=== PATIENT | female | born 1990 | race Hispanic/Latino ===

== ENCOUNTER 2016-12-11 19:27 | Emergency (ER) | payer OTHER ==
[~2016-12-11] VITALS: Ht 152.4 cm; Wt 68.0 kg
--- NOTE | 2016-12-11 20:47 | ED GI/GU/ABDOMINAL COMPLAINT ---
History of Present Illness General Chief Complaint: Low Back Pain/Injury Stated Complaint: LOWER BACK PAIN Source: patient, family Exam Limitations: no limitations Vital Signs & Intake/Output Vital Signs & Intake/Output Vital Signs Date Time Temp Pulse Resp B/P Pulse O2 O2 Flow FiO2 Ox Delivery Rate 12/11 2218 98.0 81 16 115/77 97 Room Air 12/11 2127 98 Room Air 12/11 1947 98.6 82 20 118/76 98 Room Air Allergies Coded Allergies: phenobarbital (Severe, BLISTERS IN MOUTH AND HIVES ON BODY 12/11/16) Uncoded Allergies: chewable dilantin (throat swells 12/31/13) Reconcile Medications Levetiracetam (Keppra) 500 MG TABLET 1 TAB PO BID SEIZURES (Reported) Levothyroxine Sodium 50 MCG TABLET 1 TAB PO DAILY THYROID HEALTH (Reported) Triage Note: TRIAGE: PT TO ER C/C PAIN TO LOW BACK (WORSE ON L SIDE), CONSTANT SINCE THIS MORNING AND WORSE WHEN URINATING. Triage Nurses Notes Reviewed? yes ? N Is pt currently ? No HPI: Patient presents with left flank pain radiating to her groin since morning. The pain is constant. Pain increases while she is actively urinating or with movement and had got worse during sex this evening. There is no vaginal discharge. There is no hematuria. There's no palpable fracture to her urine. There is no dysuria. She is not urinating more frequently. The pain is cramping in nature. The pain is 8 out of 10. There's no aggravating or mitigating factors. The pain is constant. Past History Travel History Traveled to [place] past 21 day No Medical History Any Pertinent Medical History? 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 No Review of Systems Review of Systems Constitutional: Reports: no symptoms. EENTM: Reports: no symptoms. Respiratory: Reports: no symptoms. Cardiovascular: Reports: no symptoms. GI: Reports: see HPI, abdominal pain. Genitourinary: Reports: see HPI. Musculoskeletal: Reports: see HPI, back pain. Skin: Reports: no symptoms. Neurological/Psychological: Reports: no symptoms. Hematologic/Endocrine: Reports: no symptoms. Immunologic/Allergic: Reports: no symptoms. All Other Systems: Reviewed and Negative Physical Exam Physical Exam General Appearance: well developed/nourished, alert, awake Head: atraumatic, normal appearance Eyes: Bilateral: PERRL, EOMI. Ears, Nose, Throat, Mouth: hearing grossly normal, moist mucous membrane Neck: normal inspection, supple, full range of motion Respiratory: normal breath sounds, chest non-tender, no respiratory distress, lungs clear Cardiovascular: regular rate/rhythm, normal peripheral pulses Gastrointestinal: normal bowel sounds, soft, non-tender, no organomegaly Back: normal inspection, normal range of motion, NO CVA TENDERNESS Extremities: normal range of motion Neurologic/Psych: no motor/sensory deficits, awake, alert, oriented x 3, normal gait, normal mood/affect Skin: intact, normal color, warm/dry Core Measures ACS in differential dx? No Severe Sepsis Present: No Septic Shock Present: No Progress Differential Diagnosis: ectopic , intrauterine , kidney stone, threatened AB, UTI/pyelo Plan of Care: Orders Procedure Date/time Status URINE 12/11 1949 Complete URINALYSIS 12/11 1949 Complete Laboratory Tests 12/11/162033: Urine Color YEL, Urine Clarity CLEAR, Urine pH 6.5, Ur Specific [place] 1.025, Urine Protein NEG, Urine Ketones NEG, Urine Nitrite NEG, Urine Bilirubin NEG, Urine Urobilinogen 0.2, Ur Leukocyte Esterase NEG, Ur Microscopic SEDIMENT EXAMINED, Urine RBC 1-3, Ur Epithelial Cells FEW, Urine Mucus RARE, Urine Hemoglobin TRACE-INTACT, Urine Glucose NEG, Urine Test NEGATIVE Diagnostic Imaging: Viewed by Me: CT Scan. Discussed w/RAD: CT Scan. Radiology Impression: PATIENT: RAQUEL GONZALEZ PRESENT AGE: 26 PATIENT ACCOUNT NO: [id number] : 88 LOCATION: [facility] ORDERING PHYSICIAN: NUHA GROVER MD SERVICE DATE: 12/11/16 EXAM TYPE: CAT - CT ABD & PELVIS W/O IV CONTRAS EXAMINATION: CT ABDOMEN AND PELVIS WITHOUT CONTRAST CLINICAL INFORMATION: Left flank pain. Evaluate for renal stone. COMPARISON: Complete abdominal ultrasound 05/06/2013. TECHNIQUE: Multidetector volumetric imaging was performed from the superior aspect of the liver through the pubic symphysis. Sagittal and coronal reformatted images were obtained on the technologist's workstation. DLP: 283 mGy-cm FINDINGS: Limited evaluation of the solid abdominal viscera in the absence of intravenous contrast. LUNG BASES: The visualized lung bases are unremarkable. LIVER, GALLBLADDER, AND BILIARY TREE: The liver is normal in size, shape, and attenuation. No contour deforming hepatic lesion or biliary ductal dilatation is present. The gallbladder is unremarkable with no evidence of radiopaque gallstones, gallbladder wall thickening, or obvious pericholecystic inflammatory changes. PANCREAS: Unremarkable. SPLEEN: Unremarkable. ADRENAL GLANDS: Unremarkable. KIDNEYS AND URETERS: The kidneys are normal in size, shape and contour. No contour deforming renal lesions are identified. No renal or ureteral stones are identified and there is no hydroureteronephrosis of either kidney or renal collecting system. BLADDER: Unremarkable. GASTROINTESTINAL TRACT: Normal anatomic orientation of the stomach relative to the duodenum. Normal caliber of abdominal and pelvic bowel loops, without evidence of obstruction or ileus. No circumferential bowel wall thickening with surrounding inflammatory changes to suggest an underlying infectious or inflammatory enterocolitis. Normal-appearing appendix within the right lower quadrant of the abdomen. No organizing intra- abdominal fluid collections or free intraperitoneal air. ABDOMINAL WALL: No significant hernia is appreciated. LYMPH NODES: No significant abdominal or pelvic adenopathy. VASCULAR: Normal course and caliber of the abdominal aorta and its branching vessels, without aneurysmal dilatation. Limited evaluation for vascular patency in the absence of intravenous contrast. PELVIC VISCERA: Evaluation of the pelvic viscera is notable for a hypoattenuating structure within the left adnexa measuring 3.3 x 4.9 cm in transverse and AP dimensions respectively. This could reflect a large cystic structure within the left ovary. OSSEOUS STRUCTURES: No acute osseous abnormality. Normal alignment of the imaged thoracolumbar spine. No visible destructive osseous lesions. IMPRESSION: 1. A 3.3 x 4.9 cm hypoattenuating structure within the left adnexa. This could reflect a large cyst within the left ovary. Recommend correlation with pelvic ultrasound. 2. No nephrolithiasis of the bilateral kidneys. No ureteral or bladder stones and no hydroureteronephrosis of either kidney or renal collecting system. DICTATED BY: DIOMEDES SORIANO MD DATE/TIME DICTATED:12/11/162221 SVP MARKETING:[employer] DATE/TIME TRANSCRIBED:12/11/162221 CONFIDENTIAL, DO NOT COPY WITHOUT APPROPRIATE AUTHORIZATION. <Electronically signed in Other Vendor System> SIGNED BY: DIOMEDES SORIANO MD 12/11/162229 Initial ED EKG: none Comments: PT DENIES ANY ADNEXAL PAIN Departure Departure Disposition: HOME OR SELF CARE Condition: Stable Clinical Impression Primary Impression: Left ovarian cyst Referrals: ALMA MICHELLE,ELISHA LEE MD,ABHAY Ramos (PCP/Family) Additional Instructions: HAVE ULTRASOUND TOMORROW FOLLOW UP WITH DR. MEZA RETURN IF SYMPTOMS WORSEN OR NEEDED Departure Forms: Customer Survey General Discharge Information Prescriptions: Current Visit Scripts Oxycodone HCl/Acetaminophen (Percocet 5-325 MG Tablet) 1-2 TAB PO Q6P PRN PAIN #20 TAB
[2016-12-11] MEDS ORDERED: KEPPRA500 M1 PO (21:41)
[2016-12-11] MEDS ORDERED: LEVOTHYROXINE50 MCG PO (21:41)
[2016-12-11 22:19] VITALS: BP 115/77
--- NOTE | 2016-12-11 22:30 | CT SCAN REPORT ---
EXAMINATION: CT ABDOMEN AND PELVIS WITHOUT CONTRAST CLINICAL INFORMATION: Left flank pain. Evaluate for renal stone. COMPARISON: Complete abdominal ultrasound 05/06/2013. TECHNIQUE: Multidetector volumetric imaging was performed from the superior aspect of the liver through the pubic symphysis. Sagittal and coronal reformatted images were obtained on the technologist's workstation. DLP: 283 mGy-cm FINDINGS: Limited evaluation of the solid abdominal viscera in the absence of intravenous contrast. LUNG BASES: The visualized lung bases are unremarkable. LIVER, GALLBLADDER, AND BILIARY TREE: The liver is normal in size, shape, and attenuation. No contour deforming hepatic lesion or biliary ductal dilatation is present. The gallbladder is unremarkable with no evidence of radiopaque gallstones, gallbladder wall thickening, or obvious pericholecystic inflammatory changes. PANCREAS: Unremarkable. SPLEEN: Unremarkable. ADRENAL GLANDS: Unremarkable. KIDNEYS AND URETERS: The kidneys are normal in size, shape and contour. No contour deforming renal lesions are identified. No renal or ureteral stones are identified and there is no hydroureteronephrosis of either kidney or renal collecting system. BLADDER: Unremarkable. GASTROINTESTINAL TRACT: Normal anatomic orientation of the stomach relative to the duodenum. Normal caliber of abdominal and pelvic bowel loops, without evidence of obstruction or ileus. No circumferential bowel wall thickening with surrounding inflammatory changes to suggest an underlying infectious or inflammatory enterocolitis. Normal-appearing appendix within the right lower quadrant of the abdomen. No organizing intra-abdominal fluid collections or free intraperitoneal air. ABDOMINAL WALL: No significant hernia is appreciated. LYMPH NODES: No significant abdominal or pelvic adenopathy. VASCULAR: Normal course and caliber of the abdominal aorta and its branching vessels, without aneurysmal dilatation. Limited evaluation for vascular patency in the absence of intravenous contrast. PELVIC VISCERA: Evaluation of the pelvic viscera is notable for a hypoattenuating structure within the left adnexa measuring 3.3 x 4.9 cm in transverse and AP dimensions respectively. This could reflect a large cystic structure within the left ovary. OSSEOUS STRUCTURES: No acute osseous abnormality. Normal alignment of the imaged thoracolumbar spine. No visible destructive osseous lesions. IMPRESSION: 1. A 3.3 x 4.9 cm hypoattenuating structure within the left adnexa. This could reflect a large cyst within the left ovary. Recommend correlation with pelvic ultrasound. 2. No nephrolithiasis of the bilateral kidneys. No ureteral or bladder stones and no hydroureteronephrosis of either kidney or renal collecting system.
[2016-12-11] MEDS ORDERED: PERCOCET 5-3251 EACH PO (22:40)
== END 2016-12-11 22:54 ==
LOC: ERH 19:27
DX: N83.202 Unspecified ovarian cyst, left side (principal)
CPT/HCPCS: 74176; 81001; 81025

== ENCOUNTER 2017-02-27 01:09 | Observation (INO) | payer OTHER ==
[~2017-02-27] VITALS: Ht 152.4 cm; Wt 68.0 kg
[~2017-02-27 01:09] MED LIST: KEPPRA500 M1 PO; LEVOTHYROXINE50 MCG PO; PERCOCET 5-3251 EACH PO
--- NOTE | 2017-02-27 10:31 | Operative Report ---
Operative/Inv Procedure Report Surgery Date: 02/27/17 Name of Procedure: Diagnostic laparoscopy peritoneal washings Pre-Operative Diagnosis: Pelvic pain Post-Operative Diagnosis: Ruptured hemorrhagic right ovarian cyst Estimated Blood Loss: less than 50ml Surgeon/Helicopter Officer: ALMA MICHELLE,ELISHA Ramos Anesthesia: general endotracheal tube Operative/Procedure Note Note: Procedure note patient was seen in the operating postop position after adequate procedure patient placed in dorsolithotomy position the vagina from dorsal fashion bladder was catheterized examination under anesthesia was performed at this point CO2 transverse left knee into the cervix up down traction Waldrop cannula was left in place surgeon regowned and gloved level of the umbilicus stab incision was made to allow entry of Veress needle the abdomen was insufflated possibly 4 L of CO2 delivered stalls which point the Veress needle was removed a 10 mm trocar was inserted atraumatically G umbilicus to that sheath laparoscope placed and direct visualization a 5 mm trocar was placed 2 fingerbreadths of symptoms pubis in the midline through that A, home office representative suction home office representative was placed the fluid was removed and sent to pathology maximal CO2 was removed from the abdomen as well as all instruments and direct visualization the incision the umbilicus fascia was reapproximated 0 the skin was reapproximated 30 on both incisions sterile dressings were applied Marcaine was injected underneath both incisions at the end the case Waldrop was removed tip intact the [place] was removed the patient was returned supine position all instruments removed from the vagina. The instrument count was correct the patient was awakened from anesthesia and transported recovery room awake alert Findings: Normal uterus normal left ovary and tube normal right tube and enlarged right ovary consistent with ruptured recently ruptured ovarian cyst
--- NOTE | 2017-02-27 13:35 | History & Physical ---
CONSTANZA BARRETT MD 02/27/17 1331: General Information and HPI MD Statement: I have seen and personally examined RAQUEL GONZALEZ and documented this H& P. The patient is a 27 year old F who presented with a patient stated chief complaint of [SEIZURES]. Source of Information: patient Exam Limitations: no limitations History of Present Illness: This is a 27-year-old female with a past medical history of hypothyroidism, childhood seizures since 3 months of age, who was evaluated in the hospital for right partial oophorectomy,Diagnostic laparoscopy peritoneal washings, repair of the right ruptured hemorrhagic ovarian cyst and is status post a 0. The patient postanesthesia had generalized tonic-clonic convulsions which lasted for 2-3 minutes without any evidence of tongue bite, urinary or stool incontinence. The patient was given 2 doses of Versed after which her's seizures stopped. The medical team was then consulted to evaluate the patient and admit under the service for observation. The patient has been taking Keppra 500 mg by mouth twice a day for the last 3 years prior to that she was on Dilantin since a childhood but was switched to Keppra 3 years back by her BASS MECHANISM MAKER due to her . The patient has been noncompliant and has not been taking Keppra medication for the last 1 year and has also been seizures free for almost 1-1/2 year.. She was recently given a prescription of 500 mg by mouth twice a day of Keppra which the patient has been taking for the last 1 week. The patient does not recall any episodes of seizures after the anesthesia on this episode. 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 spouse Services at Home: None Primary Language: Indian Smoking Status: Never Smoked ETOH Use: denies use Review of Systems Review of Systems Constitutional: Reports: see HPI. EENTM: Reports: see HPI. Exam & Diagnostic Data Last 24 Hrs of Vital Signs/I&O Laboratory Tests 02/27/17 0703: Urine Test NEGATIVE Laboratory Tests 02/27/17 07: Urine Test NEGATIVE Physical Exam General Appearance Alert, Oriented X3, Cooperative Skin No Rashes Assessment/Plan Assessment: This is a 27-year-old female with a past medical history of hypothyroidism, seizures since childhood with been noncompliant with her Keppra medication who presented to the medical team of status post BASS MECHANISM MAKER procedure, status post status epilepticus after anesthesia. Vitals at the time of admission showed Blood pressure of 118/78, respiration rate of 18, heart rate 74, saturation off 94% on room air Labs not performed in the PACU Urine beta-hCG level is negative for Assessment 1. Status epilepticus status post anesthesia: The patient has a history of childhood seizures and has been triggered by an insertion of anesthesia. Secondly the patient has also been noncompliant with antiseizure medications in the past which might have contributed to the patient's current clinical condition 2. History of childhood seizures. 3. History of hypothyroidism Plan Admit to general medicine floor for 23 our observation Start the patient on IV Keppra 750 mg twice a day EEG CBC and basic electrolyte panel TSH and free T4 levels Keppra levels No imaging at this point If the patient remains seizures free Patient is full code walking DVT prophylaxis subcutaneous Lovenox I discussed the case in detail with the on-call neurologist Dr. Kern, who agreed with 750 mg twice a day of Keppra. He recommended IV KEEPRA FOR foot today and switch to by mouth tomorrow no shortness of 1. The patient should also be discharged to by mouth Keppra 750 mg twice a day and not 500 mg twice a day If the patient does not in house EEG today or tomorrow the patient can be discharged with the instructions to follow-up with neurologist and an outpatient. As Ranked By This Provider Problem List: 1. Left ovarian cyst 2. Status epilepticus Core Measures/Miscellaneous Acute Coronary Syndrome ACS Diagnosis: No Cerebrovascular Accident CVA/TIA Diagnosis: No Congestive Heart Failure CHF Diagnosis: No Venous Thromboembolism VTE Risk Factors: Acute medical illness, Age > 40 No [facility] VTE prophylaxis d/t: VTE low risk, No contraindications No VTE Pharm Prophylaxis d/t: VTE low risk, No contraindications VTE Diagnosis: No VTE Type: NONE VTE Confirmed by (Test): NONE Severe Sepsis Severe Sepsis Present: No Septic Shock Septic Shock Present: No Miscellaneous Documentation Attending Case Discussed With: CURTIS RAMIREZ MD Primary Care Physician: ABHAY LEE MD Patient sees these Specialists None Level of Patient Care: General Medicine CURTIS RAMIREZ MD 02/27/17 8068: General Information and HPI Allergies/Medications Allergies: Coded Allergies: phenobarbital (Severe, BLISTERS IN MOUTH AND HIVES ON BODY 12/11/16) phenytoin (From DILANTIN) (Severe, THROAT SWELLS 02/26/17) CHEWABLE DILANTIN Attending MD Review Statement Attending Statement Attending MD Statement: examined this patient, discuss w/resident/PA/MEMBER SERVICES COORDINATOR, agreed w/resident/PA/MEMBER SERVICES COORDINATOR, reviewed EMR data (avail) Attending Assessment/Plan: 27F PMH seizure disorder poorly compliant with Keppra here for ambulatory surgery, laparascopic ovarian cyst removal, tolerated procedure and anesthesia well, post-op in recovery room had 2 GTC seizures, given Versed x2. Last seizure was a few years back but questionable compliance with meds as procedure was oriinally scheduled for last week but delayed as patient was not on her Keppra. Currently feels sleepy but otherwise no complaints, neuroloical exam normal, vitals stable. Plan - Observation in eneral medicine - Start Keppra 750m BID - Neuroloy consult if seizures continue - Electroencephaloram tomorrow - Continue home meds - If no seizures by tomorrow may be dischared home with otupatiet follow p
--- NOTE | 2017-02-27 14:30 | NUR ---
PATIENT ARRIVED TO FLOOR VIA STRETCHER FROM PACU WITH DISTRIBUTION; PATIENT IS A/OX3; RA; ABDOMEN SOFTLY DISTENDED; BANDAIDS X 2 TO ABDOMEN C/D/I; PATIENT HAS COMPLAINTS OF NAUSEA AT THIS TIME; DR GILLIS NOTIFIED AND ZOFRAN TO BE ORDERED PER MD; VITAL STABLE (SEE INTERVENTION); ALPS IN PLACE; SKIN INTACT; SEIZURE PADS, BITE BLOCK AND SUCTION SET UP IN ROOM; NO IVF AT THIS TIME PER DR GILLIS PENDING LABS; SALINE LOCK IN PLACE TO R HAND; EKG AND LABWORK COMPLETED; NO URINE OR ORTHOSTATIC VITALS NEEDED AT THIS TIME PER DR GILLIS; PATIENT ORIENTED TO ROOM AND CALL CALVO; WILL CONTINUE TO MONITOR PATIENT;
[2017-02-27 14:45] VITALS: BP 102/70
[2017-02-27 15:39] LABS: ABSOLUTE BASOPHIL COUNT 0 /CUMM (0.0-0.2); ABSOLUTE EOSINOPHIL COUNT 0 /CUMM (0.0-0.7); ABSOLUTE GRANULOCYTE CT 17.2 /CUMM (1.4-6.5); ABSOLUTE LYMPH COUNT 0.9 /CUMM (1.2-3.4); ABSOLUTE MONOCYTE COUNT 0.1 /CUMM (0.10-0.60); BASOPHIL % 0 % (0.0-2.0); EOSINOPHIL % 0 % (0-5); HEMATOCRIT 35.9 % (37-47); MEAN CORPUSCULAR HGB 27.1 PG (27.0-31.0); MEAN CORPUSCULAR HGB CONC 33.2 G/DL (33.0-37.0); MEAN CORPUSCULAR VOLUME 81.6 FL (81.0-99.0); MEAN PLATELET VOLUME 7.8 FL (7.4-10.4); PLATELET COUNT 347 /CUMM (130-400); RBC DISTRIBUTION WIDTH 15.1 % (11.5-14.5); RED BLOOD CELL CT 4.39 /CUMM (4.20-5.40); WHITE BLOOD CELL COUNT 18.2 /CUMM (4.8-10.8)
[2017-02-27 16:11] LABS: GRANULOCYTE % 94.6 % (42.2-75.2)
--- NOTE | 2017-02-27 22:05 | Patient Discharge Instructions ---
Discharge Instructions General Discharge Information You were seen/treated for: Seizure Ruptured hemorrhagic ovarian cyst You had these procedures: Diagnostic laparoscopic peritoneal wash Watch for these problems: Dizziness, worsening headaches, blurred vision, chest pain, shortness of breath, palpitations, fevers or chills. Special Instructions: Please take all medications as directed. You have been provided with prescriptions for pain medication by your PRICE ACCURACY SUPERVISOR Dr. Staley. Please call your PCP to set up a follow-up appointment within the next week. Please follow-up with your PRICE ACCURACY SUPERVISOR as directed. Follow-up with neurologist outpatient for medication adjustment and checking the levels in the blood. Diet Continue normal diet: Yes Activity Full Activity/No Limits: Yes Acute Coronary Syndrome Inclusion Criteria At DC or during hospital stay patient has or had the following: ACS DIAGNOSIS No Discharge Core Measures Meds if any: Prescribed or Continued at Discharge Meds if any: NOT Prescribed or Continued at Discharge Congestive Heart Failure Inclusion Criteria At DC or during hospital stay patient has or had the following: CHF DIAGNOSIS No Discharge Core Measures Meds if any: Prescribed or Continued at Discharge Meds if any: NOT Prescribed or Continued at Discharge Cerebrovascular accident Inclusion Criteria At DC or during hospital stay patient has or had the following: CVA/TIA Diagnosis No Discharge Core Measures Meds if any: Prescribed or Continued at Discharge Meds if any: NOT Prescribed or Continued at Discharge Venous thromboembolism Inclusion Criteria VTE Diagnosis No VTE Type NONE VTE Confirmed by (Test) NONE Discharge Core Measures - Per Current guidelines, there needs to be overlap - treatment for the first 5 days of Warfarin therapy. - If discharged on Warfarin prior to 5 days of - overlap therapy, the patient will need to be - assessed for post discharge needs including - *Post discharge parental anticoagulation - *Warfarin and/or parental anticoagulation education - *Follow up date to check INR post discharge At least 5 days overlap therapy as Inpatient No Meds if any: Prescribed or Continued at Discharge Note: Overlap Therapy is Warfarin and Anticoagulant Meds if any: NOT Prescribed or Continued at Discharge
[2017-02-27 22:34] VITALS: BP 102/60
[2017-02-28 01:00] VITALS: BP 108/60
[2017-02-28 06:33] VITALS: BP 102/58
--- NOTE | 2017-02-28 07:12 | Discharge Summary ---
Visit Information Visit Dates Admission Date: 02/27/17 Discharge Date: 02/28/2017 Hospital Course Course Attending Physician: CURTIS RAMIREZ MD Primary Care Physician: JESUS MICHELLE,ALEXIS Ramos Other Care Providers: Dr. Staley ([facility]) Hospital Course: Mrs. Pereira is a 27-year-old lady with a PMH of seizure disorder, hypothyroidism, chronic headaches, menorrhagia and polycystic ovaries was admitted for persistent abdominal pain and is s/pq abdominal washout in the setting of right ruptured ovarian cyst. Seizure disorder diagnosed at the age of 3 months for which she was initially on Dilantin that was discontinued 3 years ago due to adverse reactions, started on Keppra. Patient reported that her last seizure was 1.5 years ago and she stopped taking Keppra. From a gynecological standpoint she has had a one-year duration of intermittent abdominal pain, menorrhagia with associated clots for which she followed up with Dr. Staley, had an abdominal CT in November 2016 that showed a 3.34.9 cm hypoattenuating structure within the L adnexa. She was subsequently scheduled for endoscopic surgery with preprocedure recommendations for restarting her seizure medication to optimize her care. The patient has since followed up with her PCP Dr. Alexis Self and was restarted on Keppra 500 mg PO BID approximately 2 weeks ago. Postanesthesia, located between a seizure lasting 2-3 minutes which she received 2 doses of Versed. VS on admission: BP 102/70, HR 100, RR 16, SPO2 96%, T 98.3 Pertinent labs: WBC 18.2, H&H 11.9/35.9, platelets 347, sodium 135, potassium 4.3, chloride 102, BUN/CR 12/0.6, phosphorus 3.6, magnesium 1.6, TSH 2.950, free T4 0.90 Keppra level: Pending Toxicology screen: Unremarkable Problem list: 1. Seizure in the setting of anesthesia 2. Ruptured hemorrhagic cyst 3. Postoperatively day#1 diagnostic laparoscopic peritoneal wash 4. SIRS criteria: WBC 18.2, HR 100 5. Hypomagnesemia 6. Anemia 7. Menorrhagia 8. Abdominal pain status post laparoscopic surgery 9. Borderline low blood pressure Hospital course: 1. Seizure in the setting of anesthesia * Etiology likely multifactorial: Stress induced vs transient hypotension in the setting of anesthesia vs mild hypomagnesemia * Initially on IV Keppra which was then transitioned to PO * She recived a single dose of Iv keppra 750mg and transitioned back to her home dose of 500mg BID * Postdischarge follow-up on Keppra levels with dose adjustments * Post discharge referral for neurology in [facility] 2. Ruptured hemorrhagic cyst * Status post laparoscopic abdominal washout * Outpatient follow-up with Dr. Dr. Staley 3. SIRS criteria: WBC 18.2, HR 100 * This was deemed likely secondary to the stress response in setting of seizure and surgery. No evidence of fever during the hospital stay. Patient did received 2 g cefoxitin IV preoperatively * Resolved on hospital day 2 5. Hypomagnesemia * Magnesium level of 1.6. Supplemented with 800 mg mag ox * 6. Anemia * Likely secondary to blood loss in the setting of menorrhagia * H&H 11.9/35.9 * Iron studies: Iron 105, TIBC 375 * Recommend outpatient follow-up 7. Menorrhagia * Continued follow-up with [facility] Dr. Staley 8. Abdominal pain status post laparoscopic surgery * Prescription provided for Vicodin 9. Borderline low blood pressure: multifactorial in the setting of recent anesthesia, decrease oral intake and pain management * Patient reports blood pressures normally run 120s/80s * She received 1 L normal saline fluid resuscitation 10. Hypothyroidism * Continued home dose of levothyroxine Diet: Regular DVT prophylaxis: ALPs Allergies: Coded Allergies: phenobarbital (Severe, BLISTERS IN MOUTH AND HIVES ON BODY 12/11/16) phenytoin (From DILANTIN) (Severe, THROAT SWELLS 02/26/17) CHEWABLE DILANTIN Disposition Summary Disposition Principal Diagnosis: Seizure in the setting of anesthesia Additional Diagnosis: Ruptured hemorrhagic cyst Postoperatively day#1 diagnostic laparoscopic peritoneal wash SIRS criteria: WBC 18.2, HR 100 Hypomagnesemia Anemia Menorrhagia Abdominal pain status post laparoscopic surgery Borderline low blood pressure Discharge Disposition: home or self care Discharge Instructions General Discharge Information Code Status: Full Code Patient's Diet: Regular diet Patient's Activity: As tolerated Follow-Up Instructions/Appts: Please follow-up with PCP within one week after discharge. Please follow-up with the [facility] as directed. Follow-up with neurology as needed after discussion with your primary care doctor. Please take all medications as directed. Medications at Discharge Discharge Medications: Stop taking the following medications: Levetiracetam (Keppra) 500 MG TABLET ORAL TWICE DAILY Continue taking these medications: Levothyroxine Sodium (Levothyroxine Sodium) 50 MCG TABLET 1 Tablet ORAL DAILY Start taking the following new medications: Levetiracetam (Keppra) 750 MG TABLET 1 Tablet ORAL TWICE DAILY Qty = 60 No Refills Copies To: ELISHA STALEY MD; ALEXIS SELF MD Copies To: ELISHA STALEY MD; ALEXIS SELF MD
--- NOTE | 2017-02-28 07:12 | PN- Housestaff ---
See Addendum Subjective Follow-up For: Post op seizure RUptured hemorrhagic cyst s/p diagnostic laparoscopic peritoneal wash (02/27/2017 ) Complaints: intermittent abdominal pain Subjective: Interval history: His morning Mrs. Pereira reports intermittent generalized abdominal discomfort. She also complains of mild nausea and dizziness most prominent with ambulation. She denies any new blurry vision, worsening headaches, difficulty speaking, chest pain, palpitations, shortness of breath, fevers or chills. Review of Systems Constitutional: Reports: see HPI. EENTM: Reports: no symptoms. Cardiovascular: Reports: no symptoms. Respiratory: Reports: no symptoms. Gastrointestinal: Reports: see HPI. Genitourinary: Reports: no symptoms. Musculoskeletal: Reports: no symptoms. Neurological/Psychological: Reports: no symptoms. Objective Last 24 Hrs of Vital Signs/I&O Vital Signs Date Time Temp Pulse Resp B/P B/P Pulse O2 O2 Flow FiO2 Mean Ox Delivery Rate 02/28 0633 98.3 70 20 102/58 98 Room Air 02/28 0100 108/60 02/27 2234 98.2 94 20 102/60 99 Room Air 02/27 1445 98.3 100 16 102/70 96 Room Air Intake & Output 02/28 0800 02/28 0000 02/27 1600 Intake Total 1180 1400 Output Total 400 Balance 1180 1000 Intake, IV 600 Intake, Oral 480 800 Intake, 700 TPN/PPN Number 0 Bowel Movements Output, Urine 400 Patient 150 lb Weight Physical Exam General Appearance: Alert, Cooperative, No Acute Distress Skin: umbilical incision site with clean Band-Aid at this time without any evidence of active bleeding. Skin Temp/Moisture Exam: Warm/Dry HEENT: EOMI, Mucous Membr. moist/pink Cardiovascular: Regular Rate, Normal S1, Normal S2 Lungs: Clear to Auscultation, Normal Air Movement Abdomen: Soft, bowel sounds present with interval improvement over the past 12 hours. Mild tenderness elicited with palpation Neurological: Normal Speech, Normal Tone Extremities: No Edema, Normal Pulses Vascular: Pulses Symmetrical Current Medications: Current Medications Sig/Sonia Start time Last Medication Dose Route Stop Time Status Admin Acetaminophen 650 MG Q6P PRN 02/27 1345 AC 02/28 PO 0614 Acetaminophen 1,000 MG Q6P PRN 02/27 1345 AC 02/27 IV 2234 Cefoxitin Sodium 2,000 MG ONCE 02/27 0000 DC IV 02/27 2359 Enoxaparin Sodium 40 MG DAILY 02/28 1000 AC SC Fentanyl Citrate 100 MCG .STK-MED ONE 02/27 1255 DC IM 02/27 1256 Hydromorphone HCl 2 MG .STK-MED ONE 02/27 1108 DC IM 02/27 1109 Levetiracetam 750 MG Q12H 02/27 1600 AC 02/28 Sodium Chloride 100 ML IV 0410 Levetiracetam 750 MG Q12 02/27 1333 DC 02/27 Sodium Chloride 100 ML IV 1609 Levothyroxine Sodium 0.05 MG DAILY AC 02/28 0700 AC 02/28 PO 0607 Magnesium Oxide 800 MG ONE ONE 02/28 0645 DC PO 02/28 0646 Midazolam HCl 2 MG .STK-MED ONE 02/27 1041 DC IM 02/27 1042 Midazolam HCl 2 MG .STK-MED ONE 02/27 1017 DC IM 02/27 1018 Morphine Sulfate 2 MG Q6P PRN 02/27 1545 CAN IV Ondansetron HCl 4 MG Q6P PRN 02/27 1445 AC 02/27 IV 1456 Oxycodone/ 1 TAB ONCE ONE 02/28 0130 DC 02/28 Acetaminophen PO 02/28 0131 0132 Sodium Chloride 1,000 ML Q13H 02/27 1630 DC 02/27 IV 02/28 0529 1700 Last 24 Hrs of Lab/Jaylon Results Last 24 Hrs of Labs/Mics: Laboratory Tests 02/28/17 0730: Sodium Pending, Potassium Pending, Chloride Pending, Carbon Dioxide Pending, Anion Gap Pending, BUN Pending, Creatinine Pending, BUN/Creatinine Ratio Pending , Phosphorus Pending, Magnesium Pending, CBC w Diff Pending, WBC Pending, RBC Pending, Hgb Pending, Hct Pending, MCV Pending, MCH Pending, RDW Pending, Plt Count Pending, MPV Pending, PUBS MCHC Pending 02/28/17 0540: Urine Color Pending, Urine Clarity Pending, Urine pH Pending, Ur Specific [place] Pending, Urine Protein Pending, Urine Ketones Pending, Urine Nitrite Pending, Urine Bilirubin Pending, Urine Urobilinogen Pending, Ur Leukocyte Esterase Pending, Ur Microscopic Pending, Urine Hemoglobin Pending, Urine Glucose Pending 02/27/17 1458: Phosphorus 3.6, Magnesium 1.6, TSH 2.950, Free T4 0.90 02/27/17 1458: Anion Gap 12, Estimated GFR > 60, BUN/Creatinine Ratio 20.0, CBC w Diff NO MAN DIFF REQ, RBC 4.39, MCV 81.6, MCH 27.1, RDW 15.1 H, MPV 7.8, Gran % 94.6 H, Lymphocytes % 4.9 L, Monocytes % 0.5 L, Eosinophils % 0, Basophils % 0 L, Absolute Granulocytes 17.2 H, Absolute Lymphocytes 0.9 L, Absolute Monocytes 0.1 L, Absolute Eosinophils 0, Absolute Basophils 0, PUBS MCHC 33.2, Levetiracetam Pending Assessment/Plan Assessment: Mrs. Pereira is a 27-year-old lady with a PMH of seizure disorder, hypothyroidism, chronic headaches, menorrhagia and polycystic ovaries was admitted for persistent abdominal pain and is s/pq abdominal washout in the setting of right ruptured ovarian cyst. Seizure disorder diagnosed at the age of 3 months for which she was initially on Dilantin that was discontinued 3 years ago due to adverse reactions, started on Keppra. Patient reported that her last seizure was 1.5 years ago and she stopped taking Keppra. From a gynecological standpoint she has had a one-year duration of intermittent abdominal pain, menorrhagia with associated clots for which she followed up with Dr. Staley, had an abdominal CT in November 2016 that showed a 3.34.9 cm hypoattenuating structure within the L adnexa. She was subsequently scheduled for endoscopic surgery with preprocedure recommendations for restarting her seizure medication to optimize her care. The patient has since followed up with her PCP Dr. Alexis Self and was restarted on Keppra 500 mg PO BID approximately 2 weeks ago. Postanesthesia, located between a seizure lasting 2-3 minutes which she received 2 doses of Versed. VS on admission: BP 102/70, HR 100, RR 16, SPO2 96%, T 98.3 Pertinent labs: WBC 18.2, H&H 11.9/35.9, platelets 347, sodium 135, potassium 4.3, chloride 102, BUN/CR 12/0.6, phosphorus 3.6, magnesium 1.6, TSH 2.950, free T4 0.90 Keppra level: Pending Toxicology screen: Unremarkable Problem list: 1. Seizure in the setting of anesthesia 2. Ruptured hemorrhagic cyst 3. Postoperatively day#1 diagnostic laparoscopic peritoneal wash 4. SIRS criteria: WBC 18.2, HR 100 5. Hypomagnesemia 6. Anemia 7. Menorrhagia 8. Abdominal pain status post laparoscopic surgery 9. Borderline low blood pressure Plan: 1. Seizure in the setting of anesthesia * Etiology likely multifactorial: Stress induced vs transient hypotension in the setting of anesthesia vs mild hypomagnesem * Initially on IV Keppra 750mg which was then transitioned to PO 500mg BID previous hm dose * Postdischarge follow-up on Keppra levels with dose adjustments at that time * Post discharge referral for neurology under [facility] 2. Ruptured hemorrhagic cyst * Status post laparoscopic abdominal washout * Dr. Staley on board 3. SIRS criteria: WBC 18.2, HR 100 * No evidence of fever at this time. Patient did received 2 g cefoxitin IV preoperatively * Likely stress response in the setting of seizure and surgery * Continue to monitor off antibiotics at this time 5. Hypomagnesemia * Magnesium level of 1.6. Supplement with 800 mg mag ox 6. Anemia * H&H 11.9/35.9 * Follow-up iron studies and if evidence of iron deficiency we'll start patient on ferrous sulfate 325 mg po bid with outpatient follow-up 7. Menorrhagia * Continued follow-up with [facility]. Staley 8. Abdominal pain status post laparoscopic surgery * Prescription provided for Vicodin 9. Borderline low blood pressure: multifactorial in the setting of recent anesthesia, decrease oral intake and pain management * Patient reports blood pressures normally run 120s/80s * S/P 1 L normal saline fluid resuscitation * Encourage oral intake * We'll check orthostatics this morning and give 1 more liter normal saline if positive 10. Hypothyroidism * Continue home dose of levothyroxine Diet: Regular DVT prophylaxis: ALPs Problem List: 1. Seizure 2. Ruptured cyst of ovary 3. SIRS (systemic inflammatory response syndrome) 4. Hypomagnesemia 5. Menorrhagia 6. Anemia 7. Abdominal pain 8. Hypothyroidism Pain Ratin Pain Location: Generalized abdominal region Pain Goal: Pain 4 or less Pain Plan: Vicodin Tomorrow's Labs & Rationales: None required. Stable for discharge DVT/Prophylaxis: mechanical Discharge Plan Discharge Disposition: home Stable for Discharge? Yes Anticipated Discharge (Day): today Stable for Discharge? Yes Anticipated Discharge (Day): today
[2017-02-28 08:08] LABS: ABSOLUTE BASOPHIL COUNT 0 /CUMM (0.0-0.2); ABSOLUTE EOSINOPHIL COUNT 0 /CUMM (0.0-0.7); ABSOLUTE GRANULOCYTE CT 6.8 /CUMM (1.4-6.5); ABSOLUTE LYMPH COUNT 2.5 /CUMM (1.2-3.4); ABSOLUTE MONOCYTE COUNT 0.7 /CUMM (0.10-0.60); BASOPHIL % 0.2 % (0.0-2.0); EOSINOPHIL % 0.4 % (0-5); GRANULOCYTE % 67.9 % (42.2-75.2); MEAN CORPUSCULAR HGB 27.1 PG (27.0-31.0); MEAN CORPUSCULAR HGB CONC 33.4 G/DL (33.0-37.0); MEAN CORPUSCULAR VOLUME 81.3 FL (81.0-99.0); MEAN PLATELET VOLUME 7.6 FL (7.4-10.4); PLATELET COUNT 304 /CUMM (130-400); RBC DISTRIBUTION WIDTH 14.8 % (11.5-14.5); RED BLOOD CELL CT 3.94 /CUMM (4.20-5.40); WHITE BLOOD CELL COUNT 10.1 /CUMM (4.8-10.8)
[2017-02-28] MEDS ORDERED: KEPPRA750 M1 PO (09:33)
== END 2017-02-28 12:10 ==
LOC: STS 01:09 → 2NB 13:01 → PACUH 13:01 → EDBEDREQ 13:42 → ENRESERV 13:43 → 2NB 14:27 → ENPENDDIS 02-28 09:28 → 2NB 02-28 12:10
PROVIDERS: Internal Medicine Nephrology; ADMIT Internal Medicine
DX: N83.201 Unspecified ovarian cyst, right side (principal); G40.89 Other seizures; T41.1X5A Adverse effect of intravenous anesthetics, initial encounter; E03.9 Hypothyroidism, unspecified; R06.02 Shortness of breath
CPT/HCPCS: 6040; 80307; 81001; 81025; 82436; 88305; 93005; 93010; 96374; 96375; 96376; G0378; J0131; J0694; J1650; J1953; J2405

== ENCOUNTER 2017-03-03 12:04 | Emergency (ER) | payer OTHER ==
[~2017-03-03] VITALS: Ht 152.4 cm; Wt 68.0 kg
[~2017-03-03 12:04] MED LIST changes: +KEPPRA750 M1 PO
--- NOTE | 2017-03-03 13:35 | ED GENERAL ADULT ---
History of Present Illness General Chief Complaint: Seizure Stated Complaint: SIB , R SIDE HEAD PAIN/SEIZ S/P SURG THURS Source: patient Exam Limitations: no limitations Vital Signs & Intake/Output Vital Signs & Intake/Output Vital Signs Date Time Temp Pulse Resp B/P B/P Pulse O2 O2 Flow FiO2 Mean Ox Delivery Rate 03/03 1518 98.2 82 16 110/80 98 Room Air 03/03 1438 98.0 80 18 106/56 98 Room Air 03/03 1216 97.8 83 16 115/78 96 Room Air Allergies Coded Allergies: phenobarbital (Severe, BLISTERS IN MOUTH AND HIVES ON BODY 12/11/16) phenytoin (From DILANTIN) (Severe, THROAT SWELLS 02/26/17) CHEWABLE DILANTIN Reconcile Medications Hydrocodone/Acetaminophen (Vicodin 5-300 MG Tablet) 5 MG-300 MG TABLET 1 TAB PO QPM PRN PAIN (Reported) Ibuprofen 800 MG TABLET 1 TAB PO DAILY NEEDED PRN PAIN (Reported) Levetiracetam (Keppra) 500 MG TABLET 1 TAB PO BID SEIZURES (Reported) Levothyroxine Sodium 50 MCG TABLET 1 TAB PO DAILY AC THYROID (Reported) Triage Note: 27 Y/O FEMALE C/O R SIDED HEADACHE; STATES SHE HAD LAPROSCOPIC SURGERY FOR OVARIAN CYST ON FRIDAY AND HAD 4 SEIZURES DURING RECOVERY; HX SEIZURE DISORDER AND IS ON MEDS. STATES SHE HAS BEEN TAKING MEDS PRESCRIBED, INCLUDING TODAYS DOSE. WAS D/ANETTE FRIDAY AND CONTINUES TO HAVE R SIDED HEADACHES AND DIZZINESS. C/O NAUSEA. DENIES URINARY SYMPTOMS. AFEBRILE. Triage Nurses Notes Reviewed? yes Onset: 4 days ago Duration: day(s):, constant, getting worse Timing: remote history : No Patient currently breastfeeds: No HPI: 27-year-old female with past medical history of seizures, hypothyroid, status post laparoscopic ovarian cystectomy (postop day 4) presenting with worsening right-sided headache, nausea, lightheadedness 4 days that began status post 4 seizures immediatley after surgical procedure had been completed. Not currently followed by neurology, managed on Keppra by her PCP, reports med compliance with last dose this morning. States that her seizures are very infrequent with last seizure about one year ago, reports that she has never had any of these current symptoms associated with seizures in the past and is usually asymptomatic after a postictal period. Denies fevers, vomiting, visual changes, dizziness, infectious symptoms. Denies drug use other than postop pain medications. (JUANITA STOKES,FREDA) Past History Travel History Traveled to [place] past 21 day No Medical History Any Pertinent Medical History? 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 No (JUANITA STOKES,FREDA) Review of Systems Review of Systems Constitutional: Denies: chills, fever, malaise, weakness. EENTM: Denies: blurred vision, double vision, visual changes, hearing changes. Respiratory: Denies: cough, short of breath, sputum production. Cardiovascular: Denies: chest pain, syncope. GI: Reports: nausea. Denies: abdominal pain, constipation, diarrhea, vomiting. Genitourinary: Denies: discharge, dysuria. Musculoskeletal: Denies: joint pain, muscle pain. Skin: Denies: rash. Neurological/Psychological: Reports: headache, tonic-clonic seizures, other (light headedness). Denies: confusion, numbness, paresthesia, tingling, tremors, weakness. (JUANITA STOKES,FREDA) Physical Exam Physical Exam General Appearance: well developed/nourished, no apparent distress Head: atraumatic, normal appearance Ears, Nose, Throat: normal ENT inspection Neck: normal inspection, supple, No LAD Respiratory: normal breath sounds, lungs clear Cardiovascular: regular rate/rhythm Gastrointestinal: normal bowel sounds, soft, non-tender Neurologic/Psych: no motor/sensory deficits, awake, alert, oriented x 3, normal gait, assessment expert II-XII nml as tested Core Measures ACS in differential dx? No CVA/TIA Diagnosis: No Severe Sepsis Present: No Septic Shock Present: No (FREDA GRANT PA-C) Progress Differential Diagnoses I considered the following diagnoses in my evaluation of the patient: [ Infectious versus metabolic versus tox etiologies as triggers for seizure considered. New intracranial pathology contributing to new seizure pattern considered. Postop anemia contributing to headache also considered. Tension headache versus cluster headache versus migraine also considered.] Plan of Care: Orders Procedure Date/time Status CULTURE,URINE 03/03 1317 Active URINE DRUGS OF ABUSE 03/03 1317 Complete URINE 03/03 1317 Complete URINALYSIS 03/03 1317 Complete CBC WITHOUT DIFFERENTIAL 03/03 1317 Complete BASIC METABOLIC PANEL 03/03 1317 Complete Laboratory Tests 03/03/17 1333: Anion Gap 11, Estimated GFR > 60, BUN/Creatinine Ratio 18.6, Glucose 90, Calcium 9.7, CBC w Diff NO MAN DIFF REQ, RBC 4.46, MCV 80.0 L, MCH 26.8 L, RDW 14.6 H , MPV 7.5, Gran % 65.5, Lymphocytes % 26.6, Monocytes % 6.3, Eosinophils % 1.4, Basophils % 0.2, Absolute Granulocytes 4.4, Absolute Lymphocytes 1.8, Absolute Monocytes 0.4, Absolute Eosinophils 0.1, Absolute Basophils 0, PUBS MCHC 33.5, Urine Opiates Screen 742.00, Methadone Screen < 40, Barbiturate Screen < 60, Ur Phencyclidine Scrn < 6.00, Amphetamines Screen < 100, U Benzodiazepines Scrn < 85, Urine Cocaine Screen < 50, Urine Cannabis Screen < 5.00, Urinalysis LIGHT H , Urine Color STRAW, Urine Clarity CLEAR, Urine pH 6.5, Ur Specific [place] <= 1.005, Urine Protein NEG, Urine Ketones NEG, Urine Nitrite NEG, Urine Bilirubin NEG, Urine Urobilinogen 0.2, Ur Leukocyte Esterase NEG, Ur Microscopic SEDIMENT EXAMINED, Urine RBC 1-3, Urine WBC 1-3 H, Ur Epithelial Cells FEW, Urine Bacteria FEW H, Urine Hemoglobin TRACE-LYSED, Urine Glucose NEG, Urine Test NEGATIVE Microbiology 03/03 1333 URINE ROUT: Urine Culture - RECD Labs, urine, chest x-ray, head CT scan all unremarkable. Seizure likely in the setting of stress from surgical procedure. No improvement in headache after IV fluids and Reglan. Toradol added on after negative head CT. Patient states that she has not been sleeping well since the surgery, which may be contributing to persistent headache. Patient is in the process of being referred to [facility] neurology by her primary care provider for further management. (FREDA GRANT PA-C) Initial ED EKG: none (FREDA GRANT PA-C) Departure Departure Disposition: HOME OR SELF CARE Condition: Stable Clinical Impression Primary Impression: Headache Secondary Impressions: Light headedness, Nausea Referrals: LATA ALVAREZ MD Departure Forms: Customer Survey General Discharge Information Comments Follow-up with [facility] neurology as scheduled. If unable to be seen by [facility] you can follow up with neurologist listed in discharge papers. Return to the ED for any new or worsening symptoms. (FREDA GRANT PA-C) PA/DRUG ROOM CLERK Co-Sign Statement Statement: ED Attending supervision documentation- [] I saw and evaluated the patient. I have also reviewed all the pertinent lab results and diagnostic results. I agree with the findings and the plan of care as documented in the PA's/DRUG ROOM CLERK's documentation. [X] I have reviewed the ED Record and agree with the PA's/DRUG ROOM CLERK's documentation. [] Additions or exceptions (if any) to the PAs/DRUG ROOM CLERK's note and plan are summarized below: [] (ASHLEY MUSA DO) Critical Care Note Critical Care Note Critical Care Time: non-applicable (FREDA GRANT PA-C)
[2017-03-03 13:47] LABS: ABSOLUTE BASOPHIL COUNT 0 /CUMM (0.0-0.2); ABSOLUTE EOSINOPHIL COUNT 0.1 /CUMM (0.0-0.7); ABSOLUTE GRANULOCYTE CT 4.4 /CUMM (1.4-6.5); ABSOLUTE LYMPH COUNT 1.8 /CUMM (1.2-3.4); ABSOLUTE MONOCYTE COUNT 0.4 /CUMM (0.10-0.60); BASOPHIL % 0.2 % (0.0-2.0); EOSINOPHIL % 1.4 % (0-5); GRANULOCYTE % 65.5 % (42.2-75.2); HEMATOCRIT 35.7 % (37-47); MEAN CORPUSCULAR HGB 26.8 PG (27.0-31.0); MEAN CORPUSCULAR HGB CONC 33.5 G/DL (33.0-37.0); MEAN PLATELET VOLUME 7.5 FL (7.4-10.4); PLATELET COUNT 341 /CUMM (130-400); RBC DISTRIBUTION WIDTH 14.6 % (11.5-14.5); RED BLOOD CELL CT 4.46 /CUMM (4.20-5.40); WHITE BLOOD CELL COUNT 6.8 /CUMM (4.8-10.8)
[2017-03-03] MEDS ORDERED: IBUPROFEN800 M1 PO (13:54)
[2017-03-03] MEDS ORDERED: VICODIN 5-3001 EACH PO (13:54)
--- NOTE | 2017-03-03 14:25 | CT SCAN REPORT ---
EXAMINATION: CT HEAD WITHOUT CONTRAST CLINICAL INFORMATION: New seizure pattern. Post seizure headache for 4 days. COMPARISON: None TECHNIQUE: Contiguous axial imaging was performed from the skull base to vertex without intravenous administration of contrast. DLP: 606 mGy-cm FINDINGS: There is no evidence of acute intracranial hemorrhage or territorial infarction. No abnormal mass effect or midline shift is seen. Cain to white matter differentiation is well preserved. No extra-axial fluid collections are identified. The ventricles are normal in size. There is no abnormal attenuation within the brain parenchyma. The osseous structures and soft tissues are normal. The mastoid air cells and visualized portions of the paranasal sinuses are well aerated. IMPRESSION: No acute intracranial pathology.
--- NOTE | 2017-03-03 14:55 | RADIOLOGY REPORT ---
EXAMINATION: XR CHEST CLINICAL INFORMATION: Recent increase in seizure. Evaluate for infectious process. COMPARISON: None TECHNIQUE: 2 views of the chest were obtained. FINDINGS: The cardiomediastinal silhouette is normal. The lungs are clear. No consolidation, pulmonary edema, pleural effusion, or pneumothorax. No acute osseous abnormalities. IMPRESSION: No acute abnormality.
[2017-03-03 15:18] VITALS: BP 110/80
== END 2017-03-03 15:21 ==
LOC: ERH 12:04
PROVIDERS: Physician Assistant
DX: R51 Headache (principal); R42 Dizziness and giddiness; R11.0 Nausea
CPT/HCPCS: 80307; 81001; 81025; 87086; 96374; 96375; J1885; J2765

== ENCOUNTER 2018-01-27 19:39 | Emergency (ER) | payer OTHER ==
[~2018-01-27] VITALS: Ht 152.4 cm; Wt 70.3 kg
[~2018-01-27 19:39] MED LIST changes: +BACLOFEN10 M1 PO; +IBUPROFEN600 M1 PO; +IBUPROFEN800 M1 PO; +VICODIN 5-3001 EACH PO
[2018-01-27 21:00] LABS: ABSOLUTE BASOPHIL COUNT 0 /CUMM (0.0-0.2); ABSOLUTE EOSINOPHIL COUNT 0.1 /CUMM (0.0-0.7); ABSOLUTE GRANULOCYTE CT 4.8 /CUMM (1.4-6.5); ABSOLUTE LYMPH COUNT 2.7 /CUMM (1.2-3.4); ABSOLUTE MONOCYTE COUNT 0.6 /CUMM (0.10-0.60); BASOPHIL % 0.2 % (0.0-2.0); EOSINOPHIL % 1.2 % (0-5); GRANULOCYTE % 58.7 % (42.2-75.2); HEMATOCRIT 39.3 % (37-47); MEAN CORPUSCULAR HGB 27.1 PG (27.0-31.0); MEAN CORPUSCULAR HGB CONC 32.5 G/DL (33.0-37.0); MEAN CORPUSCULAR VOLUME 83.6 FL (81.0-99.0); MEAN PLATELET VOLUME 7.5 FL (7.4-10.4); PLATELET COUNT 403 /CUMM (130-400); RBC DISTRIBUTION WIDTH 14.1 % (11.5-14.5); RED BLOOD CELL CT 4.71 /CUMM (4.20-5.40); WHITE BLOOD CELL COUNT 8.3 /CUMM (4.8-10.8)
--- NOTE | 2018-01-27 23:29 | ED GI/GU/ABDOMINAL COMPLAINT ---
History of Present Illness General Chief Complaint: Abdominal Pain/Flank Pain Stated Complaint: R FLANK PAIN Source: patient Exam Limitations: no limitations Vital Signs & Intake/Output Vital Signs & Intake/Output Vital Signs Date Time Temp Pulse Resp B/P B/P Pulse O2 O2 Flow FiO2 Mean Ox Delivery Rate 01/28 0057 97.3 86 18 123/78 100 Room Air 01/28 0050 100 Room Air ED Intake and Output 01/28 0000 04 1200 Intake Total Output Total Balance Patient 155 lb Weight Weight Reported by Patient Measurement Method Allergies Coded Allergies: phenobarbital (Severe, BLISTERS IN MOUTH AND HIVES ON BODY 01/27/18) phenytoin (From DILANTIN) (Severe, THROAT SWELLS 01/27/18) CHEWABLE DILANTIN Reconcile Medications Baclofen 10 MG TABLET 1-2 TAB PO TID PRN muscle strain Hydrocodone/Acetaminophen ([place] 5-300 MG Tablet) 5 MG-300 MG TABLET 1 TAB PO QPM PRN PAIN (Reported) Hydrocodone/Acetaminophen ([place] 5-325 Tablet) 5 MG-325 MG TABLET 1-2 TAB PO Q4-6 PRN PRN SEVERE PAIN Ibuprofen 800 MG TABLET 1 TAB PO DAILY NEEDED PRN PAIN (Reported) Ibuprofen 600 MG TABLET 1 TAB PO Q6PRN PRN pain with food Levetiracetam (Keppra) 500 MG TABLET 1 TAB PO BID SEIZURES (Reported) Levothyroxine Sodium 50 MCG TABLET 1 TAB PO DAILY AC THYROID (Reported) Ondansetron (Zofran Odt) 4 MG TAB.RAPDIS 1 TAB SL TID PRN NAUSEA Oxycodone HCl/Acetaminophen (Percocet 5-325 MG Tablet) 5 MG-325 MG TABLET 1 TAB PO Q6P PRN severe pain Triage Note: PT FROM HOME C/O MID ABD/RIGHT FLANK PAIN. PT STATES 2X WEEKS MID ABD PAIN THAT WAS INTERMITTENT AND FOR THE PAST 3 DAYS PT HAS HAD THAT PAIN RADIATE TO RIGHT FLANK/BACK. PT STATES THE PAIN IS 10/10 WITH NAUSEA. PT DENIES UTI S/S. PT DENIES HX OF KIDNEY STONES. VSS, AFEBRILE. Triage Nurses Notes Reviewed? yes LMP (ages 10-50): unknown ? N Is pt currently ? No Onset: Abrupt Duration: week(s): (2), constant, continues in ED, getting worse Timing: single episode today Quality/Severity: cramping, sharpness Severity Numbers: 10 Location: right flank Radiation: back Activities at Onset: none Prior Abdominal Problems: none Past Sexual History: Unobtainable at this time No Modifying Factors: none Modifying Factors: Worsens With: movement, palpation. Associated Symptoms: abdominal pain, lower back pain HPI: 27 YEAR OLD FEMALE HX OF SEIZURE D/O AND HYPOTHYRIODISM PRESENTS FOR EVAL OF RT FLANK AND LOWER BACK PAIN. PAIN FIRST STARTED 2 WEEKS AGO AND HAS BEEN GETTING WORSE. THE PAIN IS WORSE WITH MOVEM ENT AND IMPROVMES WITH REST. NO TRAUMA OR TRIGGERING EVENT REPORTS ASSOCIATED NAUSEA. NO URINARY SYMPTOMS OR BOWEL/BLADDER DYSFUNCTION. NO CHEST PAIN OR SOB. NO VAGINAL DISCHARGE. (Ministerio Nunez) Past History Travel History Traveled to [place] past 21 day No Medical History Any Pertinent Medical History? see below for history Neurological: seizure EENT: NONE Cardiovascular: NONE Respiratory: NONE Gastrointestinal: NONE Hepatic: NONE Renal: NONE Musculoskeletal: NONE Psychiatric: NONE Endocrine: hypothyroidism Blood Disorders: NONE Cancer(s): NONE PROCUREMENT FORESTER/Reproductive: TUBAL LIGATION History of MRSA: No History of VRE: No History of CDIFF: No Surgical History Surgical History: none Psychosocial History Services at Home None What is your primary language Korean Tobacco Use: Never used Family History Family History, If Any: MOTHER Relation not specified for: Seizures Hx Contributory? No (Ministerio Nunez) Review of Systems Review of Systems Constitutional: Reports: no symptoms. EENTM: Reports: no symptoms. Respiratory: Reports: no symptoms. Cardiovascular: Reports: no symptoms. GI: Reports: see HPI, abdominal pain, nausea. Genitourinary: Reports: no symptoms. Musculoskeletal: Reports: see HPI, back pain. Skin: Reports: no symptoms. Neurological/Psychological: Reports: no symptoms. Hematologic/Endocrine: Reports: no symptoms. Immunologic/Allergic: Reports: no symptoms. All Other Systems: Reviewed and Negative (Ministerio Nunez) Physical Exam Physical Exam General Appearance: well developed/nourished, no apparent distress, alert, awake Head: atraumatic, normal appearance Eyes: Bilateral: normal appearance, PERRL, EOMI, normal inspection. Ears, Nose, Throat, Mouth: hearing grossly normal, moist mucous membrane Neck: normal inspection, supple, full range of motion Respiratory: normal breath sounds, chest non-tender, no respiratory distress, lungs clear Cardiovascular: regular rate/rhythm, normal peripheral pulses Peripheral Pulses: 2+ radial (R), 2+ radial (L) Gastrointestinal: normal bowel sounds, soft, no organomegaly, tenderness (RT FLANK) Back: normal inspection, normal range of motion, RT LUMBAR PARASPINOUS MUSCLES ARE TENDER TO PALPATION NO MIDLINE PAIN NO BRUSING SWELLING OR ABRASIONS. Extremities: normal range of motion Neurologic/Psych: no motor/sensory deficits, awake, alert, oriented x 3, normal gait Skin: intact, normal color, warm/dry Core Measures ACS in differential dx? No Sepsis Present: No Sepsis Focused Exam Completed? No (Ministerio Nunez) Progress Differential Diagnosis: appendicitis, biliary colic, cholecystitis, ectopic , endometritis, hepatitis, hernia, inflamm bowel dis, intrauterine , kidney stone, pancreatitis, PUD/GERD, SBO, threatened AB, UTI/pyelo Plan of Care: Orders Procedure Date/time Status URINE 01/28 1944 Complete URINALYSIS 01/28 1944 Complete COMPREHENSIVE METABOLIC PANEL 01/28 1944 Complete CBC WITHOUT DIFFERENTIAL 01/28 1944 Complete Laboratory Tests 01/27/182051: Anion Gap 13, Estimated GFR > 60, BUN/Creatinine Ratio 20.0, Glucose 79, Calcium 9.1, Total Bilirubin 0.6, AST 15, ALT 22, Alkaline Phosphatase 41, Total Protein 7.9, Albumin 4.8, Globulin 3.1, Albumin/Globulin Ratio 1.5, CBC w Diff NO MAN DIFF REQ, RBC 4.71, MCV 83.6, MCH 27.1, MCHC 32.5 L, RDW 14.1, MPV 7.5, Gran % 58.7, Lymphocytes % 32.6, Monocytes % 7.3, Eosinophils % 1.2, Basophils % 0.2, Absolute Granulocytes 4.8, Absolute Lymphocytes 2.7, Absolute Monocytes 0.6, Absolute Eosinophils 0.1, Absolute Basophils 0, Urinalysis LIGHT H, Urine Color YEL, Urine Clarity HAZY H, Urine pH 7.0, Ur Specific Sawyer 1.015, Urine Protein NEG, Urine Ketones NEG, Urine Nitrite NEG, Urine Bilirubin NEG, Urine Urobilinogen 0.2, Ur Leukocyte Esterase NEG, Ur Microscopic SEDIMENT EXAMINED, Urine RBC 1-3, Urine WBC 5-10 H, Ur Epithelial Cells MOD H, Urine Bacteria FEW H, Urine Hemoglobin TRACE-INTACT, Urine Glucose NEG, Urine Test NEGATIVE PT SEEN AND EVLAUTED SHE HAS LOW BACK PAIN RADIATING TO RT FLANK. NO URINARY SYMPTOMS. PT IS WORSE WITH MOVEMENT AND PALPATION. PT MEDICATED WITH TORDOL AND FLEXERIL. CT SCAN UA AND BLOOD WORK ORDERED. BLOOD WORK DOES NOT SHOW ANY ACUET CHANGES. URINE IS CLEAN. CT NEGATIVE. PT RPEROPTS SOME IMPROVEMENT BUT PAIN IS STILL SIGNIFICANT. SHE WILL BE DISCHRAGED HOME WITH VOCODIN AND ZOFRAN. SHE IS ABLE TO TOLERTAE FLUIDS. DISCVUSSED RETURN PRECAUTIONS IN DETAIL. RETURN WITH ANY CONCENRS. PT AGREES. Diagnostic Imaging: Viewed by Me: CT Scan. Discussed w/RAD: CT Scan. Radiology Impression: PATIENT: RAQUEL GONZALEZ PRESENT AGE: 27 PATIENT ACCOUNT NO: [id number] : 88 LOCATION: [facility] ORDERING PHYSICIAN: Ministerio WILKINSON SERVICE DATE: 01/27/18 EXAM TYPE: CAT - CT ABD & PELVIS W/O IV CONTRAS EXAMINATION: CT ABDOMEN AND PELVIS WITHOUT CONTRAST CLINICAL INFORMATION: Right-sided back pain. Flank pain. COMPARISON: TECHNIQUE: Multidetector volumetric imaging was performed from the superior aspect of the liver through the pubic symphysis. Sagittal and coronal reformatted images were obtained on the technologist's workstation. DLP: 291 mGy -cm FINDINGS: LUNG BASES: The visualized lung bases are unremarkable. LIVER, GALLBLADDER, AND BILIARY TREE: The liver is normal in size, shape, and attenuation. No focal hepatic lesion or biliary ductal dilatation is present. The gallbladder is unremarkable with no evidence of radiopaque gallstones, gallbladder wall thickening, or obvious pericholecystic inflammatory changes. PANCREAS: Unremarkable. SPLEEN: Unremarkable. ADRENAL GLANDS: Unremarkable. KIDNEYS AND URETERS: The kidneys are normal in size, shape, and attenuation. No hydronephrosis, hydroureter, or calculi seen. No perinephric stranding. BLADDER: Unremarkable. GASTROINTESTINAL TRACT: The stomach is unremarkable. The small bowel is normal in caliber. No obstruction. No colonic wall thickening or inflammatory change. Normal appendix. No free air or free fluid. ABDOMINAL WALL: No significant hernia is appreciated. LYMPH NODES: Normal. VASCULAR: Unremarkable. PELVIC VISCERA: Retroverted uterus. No adnexal mass. OSSEOUS STRUCTURES: No acute or suspicious osseous abnormality. IMPRESSION: No acute findings of the abdomen or pelvis. No hydronephrosis or nephrolithiasis. Normal appendix. No inflammatory changes. DICTATED BY: Melquiades Del Rio MD DATE/TIME DICTATED:01/28/1817 MANAGER PROVIDER RELATIONS:EK[place] DATE/TIME TRANSCRIBED:17 CONFIDENTIAL, DO NOT COPY WITHOUT APPROPRIATE AUTHORIZATION. < Electronically signed in Other Vendor System> SIGNED BY: Melquiades Del Rio MD 01/28/1826 Initial ED EKG: none (Ministerio Nunez) Departure Departure Disposition: HOME OR SELF CARE Condition: Stable Clinical Impression Primary Impression: Abdominal pain Qualifiers: Abdominal location: generalized Qualified Code: R10.84 - Generalized abdominal pain Referrals: Genaro Lam MD (PCP/Family) Additional Instructions: Rest drink plenty of fluids. Tylenol IV Profen for pain and [place] for severe pain only this may cause drowsiness. Zofran for nausea. Make a follow-up with YOUr primary care doctor monitor symptoms return with any concerns. Departure Forms: Customer Survey General Discharge Information Prescriptions: Current Visit Scripts Hydrocodone/Acetaminophen ([place] 5-325 Tablet) 1-2 TAB PO Q4-6 PRN PRN SEVERE PAIN #10 TAB Ondansetron (Zofran Odt) 1 TAB SL TID PRN NAUSEA #15 TAB (Ministerio Nunez) PA/KAIAKO KOHANGA REO Co-Sign Statement Statement: ED Attending supervision documentation- [] I saw and evaluated the patient. I have also reviewed all the pertinent lab results and diagnostic results. I agree with the findings and the plan of care as documented in the PA's/KAIAKO KOHANGA REO's documentation. [x] I have reviewed the ED Record and agree with the PA's/KAIAKO KOHANGA REO's documentation. [] Additions or exceptions (if any) to the PAs/KAIAKO KOHANGA REO's note and plan are summarized below: [] (Kristal MICHELLE,Prabhjot Jolley)
--- NOTE | 2018-01-28 00:27 | CT SCAN REPORT ---
EXAMINATION: CT ABDOMEN AND PELVIS WITHOUT CONTRAST CLINICAL INFORMATION: Right-sided back pain. Flank pain. COMPARISON: 12/11/2016 TECHNIQUE: Multidetector volumetric imaging was performed from the superior aspect of the liver through the pubic symphysis. Sagittal and coronal reformatted images were obtained on the technologist's workstation. DLP: 291 mGy-cm FINDINGS: LUNG BASES: The visualized lung bases are unremarkable. LIVER, GALLBLADDER, AND BILIARY TREE: The liver is normal in size, shape, and attenuation. No focal hepatic lesion or biliary ductal dilatation is present. The gallbladder is unremarkable with no evidence of radiopaque gallstones, gallbladder wall thickening, or obvious pericholecystic inflammatory changes. PANCREAS: Unremarkable. SPLEEN: Unremarkable. ADRENAL GLANDS: Unremarkable. KIDNEYS AND URETERS: The kidneys are normal in size, shape, and attenuation. No hydronephrosis, hydroureter, or calculi seen. No perinephric stranding. BLADDER: Unremarkable. GASTROINTESTINAL TRACT: The stomach is unremarkable. The small bowel is normal in caliber. No obstruction. No colonic wall thickening or inflammatory change. Normal appendix. No free air or free fluid. ABDOMINAL WALL: No significant hernia is appreciated. LYMPH NODES: Normal. VASCULAR: Unremarkable. PELVIC VISCERA: Retroverted uterus. No adnexal mass. OSSEOUS STRUCTURES: No acute or suspicious osseous abnormality. IMPRESSION: No acute findings of the abdomen or pelvis. No hydronephrosis or nephrolithiasis. Normal appendix. No inflammatory changes.
[2018-01-28] MEDS ORDERED: ZOFRAN ODT4 M1 SL (00:37)
[2018-01-28] MEDS ORDERED: NORCO 5-325 TA1 EACH PO (00:37)
[2018-01-28 00:57] VITALS: BP 123/78
== END 2018-01-28 01:00 ==
LOC: ERH 19:39
PROVIDERS: Physician Assistant Medical
DX: R10.31 Right lower quadrant pain (principal)
CPT/HCPCS: 74176; 81001; 81025; 96372; J1885